=== PATIENT | female | born 1945 | race Caucasian/White ===

== ENCOUNTER 2017-10-14 21:04 | Observation (INO) | payer MEDICARE, SELFPAY ==
[2017-10-14 21:54] LABS: Bilirubin Negative (Negative); Blood, Urine Negative (Negative); Glucose, Urine (Dipstick) Negative (Negative); Ketone, Urine Negative (Negative); Nitrite Negative (Negative); Protein, Urine (Dipstick) Negative (Neg-Trace); Urobilinogen 0.2 mg/dL (0.2-1.0)
[2017-10-14 22:53] LABS: #Basophils 0.1 thou/uL (0.0-0.2); #Eosinphils 0.2 thou/uL (0.0-0.7); #Lymphocytes 0.8 thou/uL (1.20-3.40); #Monocytes 0.7 thou/uL (0.11-0.59); #Neutrophils 5.5 thou/uL (1.40-6.50); %Basophils 1.1 % (0.0-1.0); %Eosinophils 3.4 % (0.0-10.0); %Monocytes 9.5 % (0.0-10.0); Hematocrit 47.4 % (36.0-47.0); Mean Platelet Volume 7.7 fL (7.4-10.4); Red Blood Cell (RBC) Count 5.32 mill/uL (4.20-5.40); White Blood Cell (WBC) Count 7.3 thou/uL (4.8-10.8)
[2017-10-14 23:08] LABS: ALT (SGPT) 25 U/L (8-55); AST (SGOT) 26 U/L (5-34); Alkaline Phosphatase 122 U/L (40-150); Anion Gap 14 mmol/L (10-20); BUN (Urea Nitrogen) 10 mg/dL (9.8-20.1); Bilirubin, Total 0.7 mg/dL (0.2-1.2); Calc. Creatinine Clearance 0 mL/min (70-130); Carbon Dioxide 26 mmol/L (23-31); Chloride 101 mmol/L (98-107); Estimated GFR-MDRD 61; Globulin 3.5 g/dL (2.4-3.5); Protein, Total 7.6 g/dL (6.0-8.3)
--- NOTE | 2017-10-14 23:09 | CT ---
CT HEAD NONCONTRAST 10/14/17 HISTORY: Altered mental status. Lethargy. FINDINGS: No comparison. There is no evidence of acute intracranial hemorrhage or infarct. Chronic ischemic sm all vessel disease is apparent throughout the periventricular white matter of each cerebral hemisphe re. There is no mass effect or shift of midline structures. The visualized paranasal sinuses remain well aerated. IMPRESSION: No acute intracranial abnormalities are demonstrated on noncontrast CT head. POS: [facility]
--- NOTE | 2017-10-14 23:10 | RAD ---
CHEST ONE VIEW 10/14/17 HISTORY: Altered mental status. FINDINGS: No comparison. The cardiac silhouette and pulmonary vasculature are unremarkable. Mediastinum is midline. There is no confluent air space consolidation or evidence of pneumothorax. youth nutritional monitor leads overlie the chest. IMPRESSION: No active cardiopulmonary abnormalities are demonstrated. POS: [facility]
[2017-10-14 23:13] LABS: Troponin I 0.019 ng/mL (< 0.028)
[2017-10-14] MEDS ORDERED: Nitroglycerin 2% Ointment 1 INCH/1 GM Packet ONE (23:34)
--- NOTE | 2017-10-15 00:07 | PDOC.EVN ---
Event Note - Event Note Event Note: [id number] h&p dictated 1. R/O Stroke 2. HTN 3. H/O Alzheimers plan: see orders
[2017-10-15] MEDS ORDERED: Ondansetron ODT 4 MG TAB SL PRN (01:35)
[2017-10-15] MEDS ORDERED: Ondansetron HCl/PF 4 MG/2 ML Vial IVP PRN (01:35)
[2017-10-15] MEDS ORDERED: hydrALAZINE 20 MG/ML VIAL SLOW IVP PRN (01:53)
[2017-10-15] MEDS: Sodium Chloride 0.9% 1,000 ML IV SCH ×2 (02:21→16:24)
--- NOTE | 2017-10-15 08:15 | MRI ---
PRELIMINARY REPORT/[facility]/EMERGENCY AFTER HOURS PROCEDURE: EXAM: MR Head Without Intravenous Contrast EXAM DATE/TIME: 10/15/2017 12:43 AM CLINICAL HISTORY: 72 years old, female; Condition or disease; Other: Confusion, lethargic x 3-4 days; Patient HX: F72 p resents to ed C/O AMS. Her states that the patient has been lethargic over the last few days and sleeping more than normal for the last couple days. He reports that she has had decreased appetit e in that time period. He notes that she has "not been very responsive today. " her family states onesimo t there has been an element of confusion in her mental status and facial tremors. They also report sh e has had difficulty walking. The patient states that she believes there is a problem or she "would n ot be here. " she denies any pain. The family notes that in the past, the patient has responded in a similar way to stressful life TECHNIQUE: Magnetic resonance images of the head/brain without intravenous contrast in multiple planes. COMPARISON: No relevant prior studies available. FINDINGS: Brain: Bilateral extensive supratentorial symmetric confluent chronic white matter changes nonspecifi c. Multiple foci susceptibility artifact attributed to remote microhemorrhages. No mass effect. No mi dline shift. No acute infarction. Right cerebellar abnormality may be old lacunar infarction or a fitz ous angioma. The latter usually is of no clinical significance. Ventricles: No hydrocephalus. Basal cisterns preserved. Bones/joints: unremarkable for age Sinuses: Right maxillary sinus mucoperiosteal thickening. Mastoid air cells: unremarkable Orbits: not formally imaged IMPRESSION: - Bilateral extensive supratentorial symmetric confluent chronic white matter changes nonspecific. Thank you for allowing us to participate in the care of your patient. Dictated and Authenticated by: Diego Wolfe MD 10/15/2017 1:44 AM Central Time ([place] & [place]) FINAL REPORT BRAIN MRI WITHOUT CONTRAST: DATE: 10/15/17. COMPARISON: None. HISTORY: Lethargy, decreased responsiveness, confusion, altered mental status. TECHNIQUE: Multiplanar, multisequence MR imaging of the brain obtained without contrast. FINDINGS: The diffusion weighted imaging demonstrates no evidence for an acute infarction. The gradient echo imaging demonstrates innumerable punctate foci of blooming artifact involving the s upratentorial and infratentorial brain parenchyma, evidence of numerous prior micro hemorrhages, like ly on the basis of hypertension and/or marked small-vessel disease. There is moderate diffuse cerebr al volume loss with associated prominent Virchow-Jonathan spaces throughout bilateral cerebral hemispher es. Linear areas of increased T2 signal within the right cerebellar hemisphere is evidence of prior infarction and there is extensive periventricular deep and subcortical white matter T2 and FLAIR hype rintensity, also evidence of marked small-vessel disease. The regional bone marrow signal intensity is grossly unremarkable. There is mucosal thickening involving alveolar recess of the right maxillary sinus. Arterial flow vo ids at axial level of skull base appear grossly unremarkable. IMPRESSION: Cerebral volume loss with evidence of severe small-vessel disease and multifocal remote micro hemorrh age. No evidence of acute infarction. POS: [facility]
--- NOTE | 2017-10-15 08:20 | ULT ---
BILATERAL CAROTID DUPLEX ULTRASOUND: HISTORY: Altered mental status, lethargy. TECHNIQUE: Pandey scale ultrasound with color flow and spectral Doppler imaging of the extracranial carotid artery systems is performed bilaterally. FINDINGS: There is plaque formation on either side. The peak systolic velocity in the right ICA measures 40 cm/s with an end-diastolic velocity of 10 cm/ s and a systolic ratio of 0.61. The peak systolic velocity in the left ICA measures 50 cm/s with an end-diastolic velocity of 14 cm/s and a systolic ratio of 0.77. Flow in both vertebral arteries remains antegrade. IMPRESSION: No evidence of hemodynamically significant stenosis. POS: [facility]
[2017-10-15] MEDS: Heparin 5,000 UNITS/ML VIAL SC SCH ×2 (08:46→20:15)
[2017-10-15] MEDS: Aspirin 325 mg Enteric Coated Tablet PO SCH (08:46)
[2017-10-15 08:57] VITALS: BMI 30.8
--- NOTE | 2017-10-15 10:21 | HP ---
DATE OF ADMISSION: 10/15/2017 CHIEF COMPLAINT: Altered mental status. HISTORY OF PRESENT ILLNESS: The patient is a 72-year-old female with past medical history of Alzheimer's dementia, hypertension, stroke, who came to the ER because of the confusion. History obtained from the patient's family members. According to them, the patient was visiting from out of town and currently living in the step-son's house. The patient was found to be confused all of sudden associated with some questionable unsteady gait. The patient then had an episode of urinary incontinence at home, so the patient was taken to her room and changed her clothes. While the patient was doing this, the patient started having unsteady gait and not able to follow some commands. The patient appears to have some possible tremors also, but resolved later on. Denies any chest pain. Denies any palpitations. The patient does not remember anything at this time. Denies any nausea, denies any vomiting, denies any diarrhea. PAST MEDICAL HISTORY: As per HPI. PAST SURGICAL HISTORY: Hysterectomy. SOCIAL HISTORY: Denies smoking, denies alcohol, denies any drugs. FAMILY HISTORY: Reviewed. HOME MEDICATIONS: Reviewed. REVIEW OF SYSTEMS: Constitutional: Denies any fever, denies any chills. Eyes : Denies any vision problems. Ears: Denies any hearing loss. Neck: Denies any neck pain. Cardiovascular System: Denies any chest pain. Respiratory System: Denies any cough, denies sputum production. Gastrointestinal System: Denies nausea, denies vomiting. Cranial Nerve System: Denies syncope. Positive for confusion. Positive for unsteady gait. Integumentary: Denies any rash. Musculoskeletal: Denies any joint deformities. All other review of systems are reviewed and are negative. PHYSICAL EXAMINATION: CONSTITUTIONAL/VITAL SIGNS: At the time of H and P performed, blood pressure is 160/80, heart rate 85, pulse oximetry 97%. GENERAL: The patient appears comfortable. HEENT: Pupils are equal, round, and reactive. Anterior nares patent. Nose is normal. Ears are normal. Teeth intact. Tongue is moist. NECK: Supple. No JVD. CARDIOVASCULAR SYSTEM: S1 and S2 present. Regular rate and rhythm. No murmurs , no rubs, no gallops. RESPIRATORY SYSTEM: No wheezing, no rhonchi. Breath sounds bilaterally. GASTROINTESTINAL: Abdomen is soft, nontender, no guarding, no organomegaly, no masses felt. MUSCULOSKELETAL: No edema. CRANIAL NERVES SYSTEM: Awake, oriented to person, positive. Strength intact. Sensory intact. Able to perform [id number], some confusion. PSYCHIATRIC: Mood appropriate at this time. INTEGUMENTARY: No rashes seem. LABORATORY DATA: At the time of H and P performed; UA, specific gravity of 1.022. White count 7.3, hemoglobin 15.9, platelet count is 223. ASSESSMENT AND PLAN: The patient is a 72-year-old female: 1. Rule out cerebellar stroke. Plan to do MRI brain tonight. Plan to monitor the patient closely. Plan to check carotid ultrasound. We will follow the patient closely. We will consult Neurology to evaluate the patient. 2. History of hypertension. Monitor blood pressure. Continue home blood pressure medications. 3. History of Alzheimer's. Continue home meds 4. History of stroke. Continue aspirin. Case was discussed in detail with the patient and patient's family also at the bedside. VIKAS
[2017-10-15] MEDS ORDERED: Sodium Chloride 0.9% 10 ML ONE (15:49)
[2017-10-15] MEDS: Acetaminophen 325 MG TAB PO PRN ×2 (16:19→20:15)
[2017-10-15] MEDS ORDERED: Atorvastatin Calcium 40 MG TAB PO SCH (21:00)
--- NOTE | 2017-10-15 21:46 | CON ---
DATE OF CONSULTATION: 10/15/2017 REFERRING PROVIDER: Dr. Zachary Nicole. REASON FOR CONSULTATION: Ischemic stroke. HISTORY OF PRESENT ILLNESS: Ms. Coronado is a pleasant 72-year-old female who is being consulted for evaluation of ischemic stroke. History is obtained from who was present at bedside. reports that patient over the past 3 days has been acting very lethargic and confused. She has not been eating well. She has not been able to get out of her bed. She had been going to sleep while eating at the dinner table. As the symptoms continued to progress, he decided to bring her to the [facility] for further evaluation. On further discussion, he reports that her behavior had been changing over the past 3-4 weeks, but it was more drastic in the past 3-4 days. He also mentions that she has been having memory issues over the past 3-4 years, which has gradually been declining. She has been having difficulty with remembering names, remembering conversations. She has very poor short term recall. She has stopped cooking. She forgets the recipes and how to cook her meals. She has also stopped driving by herself. She does drive when is present at times, but primarily she does not drive. She misplaces objects in a location where they do not belong and has difficulty finding them. She denies any hallucinations or delusional behavior. She denied confusion. PAST MEDICAL HISTORY: Significant for hypertension, history of stroke and Alzheimer dementia. PAST SURGICAL HISTORY: Significant for hysterectomy. SOCIAL HISTORY: She does not smoke cigarettes, drink alcohol or use illicit drugs. She is and lives with her . FAMILY HISTORY: Noncontributory. CURRENT MEDICATIONS: Please review MAR. ALLERGIES: No known drug allergies. REVIEW OF SYSTEMS: As mentioned in the HPI, otherwise negative. PHYSICAL EXAMINATION: VITAL SIGNS: Blood pressure of 157/93, pulse of 101, temperature of 99.6, respirations of 20 and O2 sats of 92% on room air. GENERAL: A well-developed, well-nourished female in no apparent distress. RESPIRATORY: Clear to auscultation bilaterally. CARDIOVASCULAR: Regular rate and rhythm. NEUROLOGIC: Mental status: The patient is awake, alert and oriented x1. She is not able to state the name of the current president. She is not able to perform serial 7s. She is not able to perform delayed recall. She had difficulty with abstract thinking. Speech and language: Fluent speech. Cranial nerves: Pupils are 3 mm and reactive. Visual pearl are full to threat. Extraocular muscles are intact. No nystagmus is noted. Face is symmetric. Tongue and uvula are midline. Motor exam showed normal tone and bulk with a 5/5 strength in both upper and lower extremities. Sensory: Sensation appears intact. Deep tendon reflexes: 2+ reflexes in both upper and lower extremities. Babinski: Plantar responses flexion bilaterally. Coordination intact to jmohir-[id number] tapping bilaterally. LABORATORY DATA: Reviewed, which included CBC, CMP, lipid profile and urinalysis, which is significant for potassium of 3.3, otherwise unremarkable. IMAGING STUDIES: MRI brain without contrast was reviewed, which showed mild to moderate cerebral volume loss along with multiple microhemorrhages throughout the brain. IMPRESSION: 1. Alzheimer dementia. 2. Amyloid angiopathy. 3. Hypertension. PLAN: Ms. Coronado is a pleasant 72-year-old female who presented with the changes in mentation. After discussion with the patient's ; it is likely that patient has advanced Alzheimer dementia that has not been treated in the past. Her MRI also shows multiple microhemorrhages that would suggest amyloid angiopathy, which tends to be at high risk leading to Alzheimer dementia. At this time, I would recommend starting her on Aricept 5 mg daily. She is okay to be followed up as an outpatient. No further neurological workup needed at this time. Thank you for the consultation. VIKAS
[2017-10-16 05:28] LABS: #Eosinphils 0.4 thou/uL (0.0-0.7); #Lymphocytes 0.9 thou/uL (1.20-3.40); #Monocytes 0.7 thou/uL (0.11-0.59); #Neutrophils 4.2 thou/uL (1.40-6.50); %Basophils 0.7 % (0.0-1.0); %Eosinophils 6.1 % (0.0-10.0); %Lymphocytes 14.8 % (21.0-51.0); %Monocytes 11.3 % (0.0-10.0); Hematocrit 46.4 % (36.0-47.0); Mean Platelet Volume 8.1 fL (7.4-10.4); Red Blood Cell (RBC) Count 5.24 mill/uL (4.20-5.40); White Blood Cell (WBC) Count 6.3 thou/uL (4.8-10.8)
[2017-10-16] MEDS: Sodium Chloride 0.9% 1,000 ML IV SCH (05:40)
[2017-10-16 05:50] LABS: Anion Gap 13 mmol/L (10-20); BUN (Urea Nitrogen) 9 mg/dL (9.8-20.1); Calc. Creatinine Clearance 86 mL/min (70-130); Calcium 8.5 mg/dL (7.8-10.44); Carbon Dioxide 24 mmol/L (23-31); Chloride 104 mmol/L (98-107); Estimated GFR-MDRD 79
[2017-10-16] MEDS: Heparin 5,000 UNITS/ML VIAL SC SCH (08:30)
[2017-10-16] MEDS: Aspirin 325 mg Enteric Coated Tablet PO SCH (08:31)
[2017-10-16] MEDS ORDERED: FLU VACC TS2017-18 (>65YR) 0.5 ML SYRINGE IM ONE (09:00)
[2017-10-16 11:22] VITALS: TEMP 97.8
--- NOTE | 2017-10-16 12:16 | DIS ---
DATE OF ADMISISON: 10/14/2017 DATE OF DISCHARGE: 10/16/2017 ADMISSION DIAGNOSIS: Altered mental status. PRIMARY DISCHARGE DIAGNOSES: 1. Advancing Alzheimer's. 2. Hypertension. 3. Amyloid angiopathy. HOSPITAL COURSE: The patient was admitted, because her family noticed that she had a change from her baseline demented state. The patient had unsteady gait and was not able to follow some commands. P jose miguel was admitted, a brain CT was performed which showed no acute intracranial abnormalities. An M RI was performed, which showed bilateral extensive supratentorial white matter changes as well as tanner e microhemorrhages. Dr. Marinelli of Neurology felt that these changes were consistent with amyloid angio jeremiah and advancing dementia. He recommended the patient be started on Aricept and be followed as an outpatient. CONSULTANTS: Dr. Marinelli, Neurology. PROCEDURES: Brain MRI as well as cardiac echocardiogram. Results of the echo showed ejection fracti on of 55%-60% with borderline concentric left ventricular hypertrophy, mild mitral regurgitation and trace tricuspid regurgitation. DISCHARGE DISPOSITION: To home. DISCHARGE MEDICATIONS: Please see medication rec list. We will add Aricept 5 mg p.o. at bedtime. DISCHARGE DIET: Heart healthy. PHYSICAL EXAMINATION: GENERAL: She is in no acute distress, ambulating and following commands. HEAD: Normocephalic, atraumatic. EYES: PERRL. Extraocular muscles intact. Throat clear. CARDIAC: Regular rate and rhythm. LUNGS: Clear to auscultation. ABDOMEN: Nontender, nondistended. EXTREMITIES: No clubbing, cyanosis or edema. DISCHARGE INSTRUCTIONS: The patient is to follow up with her PCP within 2 weeks and she is also to f ollow up with Neurology in 3-4 weeks as needed.
[2017-10-16 14:10] VITALS: BP 145/78
[2017-10-16] MEDS ORDERED: Donepezil HCl 5 MG TAB PO SCH (21:00)
--- NOTE | 2017-11-22 15:52 | EKG ---
Test Reason : AMS Blood Pressure : / mmHG Vent. Rate : 095 BPM Atrial Rate : 095 BPM P-R Int : 160 ms QRS Dur : 080 ms QT Int : 364 ms P-R-T Axes : -27 -01 064 degrees QTc Int : 457 ms Normal sinus rhythm Moderate voltage criteria for LVH, may be normal variant Cannot rule out Septal infarct , age undetermined Abnormal ECG Confirmed by JENNY NAIDU, SAMANTHA ([id number]), news copy editor BARRON ART ([id number]) on 11/22/2017 3:52:06 PM Referred By: JENNY Confirmed By:SAMANTHA ALVARADO MD
== END 2017-10-16 13:03 | disposition home or self-care (01) ==
LOC: ERS 21:04 → 2SE 23:50
PROVIDERS: ADMIT Internal Medicine; ATTEND Internal Medicine
DX: G30.9 Alzheimer's disease, unspecified (principal); F02.80 Dementia in other diseases classified elsewhere, unspecified severity, without behavioral disturbance, psychotic disturbance, mood disturbance, and anxiety; I68.0 Cerebral amyloid angiopathy; I10 Essential (primary) hypertension; Z90.710 Acquired absence of both cervix and uterus; Z86.73 Personal history of transient ischemic attack (TIA), and cerebral infarction without residual deficits; Z87.891 Personal history of nicotine dependence
CPT/HCPCS: 36415; 51701; 70450; 70551; 71010; 80048; 80053; 80061; 81003; 82140; 82553; 84484; 85025; 87040; 93005; 93306; 93880; 96360; 96361; A4216; A4353; G0378; G8978-GP-CL; G8979-GP-CJ; G8987-GO-CI; G8988-GO-CI; G8989-GO-CI; G9168-GN-CM; G9169-GN-CM; J1644

== ENCOUNTER 2021-08-07 10:35 | Outpatient (CLI) | payer MEDICARE, MEDICAID | END 2021-08-07 10:36 | disposition home or self-care (01) | LOC: CT 10:35 | PROVIDERS: ATTEND Internal Medicine | DX: R41.82 Altered mental status, unspecified (principal) | CPT/HCPCS: 70450 ==

== ENCOUNTER 2023-11-01 05:12 | Inpatient (IN) | payer MEDICARE, OTHER, MEDICAID ==
[2023-11-01 18:01] LABS: Bacteria/HPF 3+ HPF (None Seen); Bilirubin Negative (Negative); Blood, Urine 3+ (Negative); CAUTI Indications for Culture Alt mental st,lethar; Clarity Extra Turbid (Clear); Glucose, Urine (Dipstick) Normal (Negative); Ketone, Urine Negative (Negative); Leukocyte 500 Leu/uL (Negative); Nitrite Negative (Negative); Protein, Urine (Dipstick) 200 mg/dL (Neg-Trace); RBC/HPF Greater than 50 HPF (0-3); Specific Gravity, Urine 1.014 (1.002-1.036); Urobilinogen Normal mg/dL (Less than 2); WBC/HPF Greater than 50 HPF (0-3); pH, Urine 7.5 (5.0-9.0)
[2023-11-01 18:02] LABS: #Basophils 0.1 thou/uL (0.0-0.2); #Eosinphils 0.6 thou/uL (0.0-0.7); #Monocytes 0.8 thou/uL (0.11-0.59); #Neutrophils 6.9 thou/uL (1.40-6.50); %Basophils 0.7 % (0.0-1.0); %Eosinophils 5.8 % (0.0-10.0); %Lymphocytes 12.7 % (21.0-51.0); %Monocytes 8.1 % (0.0-10.0); %Neutrophils 71.8 % (42.0-75.0); Hematocrit 38.3 % (36.0-47.0); Hemoglobin 10.3 g/dL (12.0-16.0); Mean Corpuscular HGB CONC 26.9 g/dL (32.0-36.0); Mean Corpuscular Hemoglobin 26.3 pg (27.0-31.0); Mean Platelet Volume 12.7 fL (7.4-10.4); Platelet Count 198 10x3/uL (130-400); RBC Distribution Width 17.7 % (11.5-14.5); Red Blood Cell (RBC) Count 3.91 mill/uL (4.20-5.40); White Blood Cell (WBC) Count 9.6 10x3/uL (4.8-10.8)
[2023-11-01 18:03] LABS: Urine Culture Reflex Yes Yes
[2023-11-01] MEDS ORDERED: cefTRIAXone (ROCEPHIN) 1 GM VIAL ONE (18:12)
[2023-11-01] MEDS ORDERED: Sodium Chloride 0.9% 100 ML ONE (18:12)
[2023-11-01] MEDS ORDERED: Vancomycin 1 GM/200 ML (FROZEN) BAG ONE (18:12)
[2023-11-01 18:30] LABS: ALT (SGPT) 11 U/L (8-55); AST (SGOT) 11 U/L (5-34); Albumin 3.3 g/dL (3.4-4.8); Alkaline Phosphatase 77 U/L (40-110); Anion Gap 24 mmol/L (10-20); Bilirubin, Total 0.3 mg/dL (0.2-1.2); Calc. Creatinine Clearance 0 mL/min (70-130); Calcium 7.9 mg/dL (7.8-10.44); Carbon Dioxide 23 mmol/L (23-31); Chloride 130 mmol/L (98-107); Estimated GFR 8; Globulin 2.9 g/dL (2.4-3.5); Glucose 145 mg/dL (83-110); Potassium 4.9 mmol/L (3.5-5.1); Protein, Total 6.2 g/dL (5.8-8.1); Sodium 172 mmol/L (136-145)
[2023-11-01 18:32] LABS: CellaVision Operator ID LAB.KB; Hypochromia SLIGHT = 6-15 cells HPF (0-5); Ovalocytes SLIGHT = 2-5 cells HPF (0-1); Platelet Adequacy Comment Platelets Normal; Polychromasia SLIGHT = 2-3 cells HPF (0-2)
[2023-11-01 18:37] LABS: BUN (Urea Nitrogen) 135 mg/dL (9.8-20.1)
[2023-11-01 18:47] LABS: Troponin I 0.021 ng/mL (< 0.028)
[2023-11-01] MEDS ORDERED: Ondansetron ODT 4 MG TAB PO PRN (21:42)
[2023-11-01] MEDS ORDERED: Acetaminophen 650 MG Suppository PR PRN (21:42)
[2023-11-01] MEDS ORDERED: Ondansetron PF 4 MG/2 ML Vial IVP PRN (21:42)
[2023-11-01] MEDS ORDERED: Acetaminophen 325 MG TAB PO PRN (21:42)
[2023-11-01] MEDS: Sodium Chloride 0.9% 1,000 ML IV SCH (22:08)
[2023-11-01] MEDS ORDERED: Piperacillin/Tazobactam 3.375 GM in Sodium Chloride 0.9% 100 ML IVPB SCH (23:00)
[2023-11-01] MEDS ORDERED: Piperacillin/Tazobactam 4.5 GM in Sodium Chloride 0.9% 100 ML IVPB SCH (23:59)
[2023-11-02] MEDS: Sodium Chloride 0.9% 1,000 ML IV SCH (02:30)
[2023-11-02] MEDS: Piperacillin/Tazobactam 3.375 GM in Sodium Chloride 0.9% 100 ML IVPB SCH ×2 (04:03→15:15)
[2023-11-02 05:56] LABS: #Basophils 0.1 thou/uL (0.0-0.2); #Eosinphils 0.7 thou/uL (0.0-0.7); #Neutrophils 5.7 thou/uL (1.40-6.50); %Basophils 0.8 % (0.0-1.0); %Lymphocytes 23.4 % (21.0-51.0); %Monocytes 10.5 % (0.0-10.0); %Neutrophils 57.2 % (42.0-75.0); Hematocrit 33.4 % (36.0-47.0); Hemoglobin 9.1 g/dL (12.0-16.0); Mean Corpuscular HGB CONC 27.2 g/dL (32.0-36.0); Mean Corpuscular Hemoglobin 26.1 pg (27.0-31.0); Mean Corpuscular Volume 95.7 fl (78.0-98.0); Platelet Count 169 10x3/uL (130-400); RBC Distribution Width 17.3 % (11.5-14.5); Red Blood Cell (RBC) Count 3.49 mill/uL (4.20-5.40); White Blood Cell (WBC) Count 9.9 10x3/uL (4.8-10.8)
[2023-11-02 06:35] LABS: Anion Gap 16 mmol/L (10-20); BUN (Urea Nitrogen) 118 mg/dL (9.8-20.1); Calc. Creatinine Clearance 10 mL/min (70-130); Calcium 7.4 mg/dL (7.8-10.44); Carbon Dioxide 22 mmol/L (23-31); Chloride 134 mmol/L (98-107); Estimated GFR 11; Glucose 104 mg/dL (83-110); Sodium 168 mmol/L (136-145)
[2023-11-02] MEDS ORDERED: FLU VACC QS2023(65UP)/MF59C/PF 60 MCG/0.5 ML SYRINGE IM ONE (09:00)
[2023-11-02] MEDS: Famotidine 20 MG TAB PO SCH (09:57)
[2023-11-02] MEDS: Heparin 5,000 UNITS/ML VIAL SC SCH ×3 (10:00→21:16)
[2023-11-02] MEDS: Famotidine/PF 20 mg/2ml Vial SLOW IVP SCH (10:00)
[2023-11-02] MEDS: Sodium Chloride 0.45% 1,000 ML IV SCH ×3 (10:00→22:35)
[2023-11-02 15:05] LABS: Anion Gap 15 mmol/L (10-20); BUN (Urea Nitrogen) 106 mg/dL (9.8-20.1); Calc. Creatinine Clearance 12 mL/min (70-130); Calcium 7.5 mg/dL (7.8-10.44); Carbon Dioxide 22 mmol/L (23-31); Chloride 134 mmol/L (98-107); Estimated GFR 12; Glucose 93 mg/dL (83-110); Potassium 4.3 mmol/L (3.5-5.1); Sodium 167 mmol/L (136-145)
[2023-11-02 20:25] LABS: Anion Gap 17 mmol/L (10-20); BUN (Urea Nitrogen) 94 mg/dL (9.8-20.1); Calc. Creatinine Clearance 13 mL/min (70-130); Calcium 7.7 mg/dL (7.8-10.44); Carbon Dioxide 20 mmol/L (23-31); Chloride 132 mmol/L (98-107); Estimated GFR 14; Glucose 83 mg/dL (83-110); Potassium 4.2 mmol/L (3.5-5.1); Sodium 165 mmol/L (136-145)
[2023-11-03] MEDS: Piperacillin/Tazobactam 3.375 GM in Sodium Chloride 0.9% 100 ML IVPB SCH ×2 (04:41→16:41)
[2023-11-03] MEDS: Sodium Chloride 0.45% 1,000 ML IV SCH (05:00)
[2023-11-03] MEDS: Famotidine/PF 20 mg/2ml Vial SLOW IVP SCH (08:20)
[2023-11-03] MEDS: Heparin 5,000 UNITS/ML VIAL SC SCH ×3 (08:20→20:59)
[2023-11-03] MEDS: Famotidine 20 MG TAB PO SCH (08:20)
[2023-11-03] MEDS ORDERED: levETIRAcetam 100 mg/ml Oral Solution PO SCH (09:00)
[2023-11-03] MEDS: D5 1/4 NS 1,000 ML IV SCH ×3 (09:12→21:09)
[2023-11-03] MEDS ORDERED: Amiodarone 200 MG TAB PO SCH (09:15)
[2023-11-03 09:26] LABS: Lactic Acid 0.9 mmol/L (0.5-2.2)
[2023-11-03 09:33] LABS: Anion Gap 15 mmol/L (10-20); BUN (Urea Nitrogen) 70 mg/dL (9.8-20.1); Calc. Creatinine Clearance 15 mL/min (70-130); Calcium 7.5 mg/dL (7.8-10.44); Carbon Dioxide 21 mmol/L (23-31); Chloride 130 mmol/L (98-107); Estimated GFR 18; Glucose 79 mg/dL (83-110); Sodium 162 mmol/L (136-145)
[2023-11-03] MEDS: Divalproex Sodium 250 MG (DR) TAB PO SCH ×2 (09:35→20:59)
[2023-11-03] MEDS: hydrALAZINE 25 MG TAB PO SCH ×3 (09:36→20:59)
[2023-11-03] MEDS: Memantine 10 MG TAB PO SCH ×2 (09:36→20:59)
[2023-11-03] MEDS: Cholecalciferol 1,000 UNITS (25 MCG) TAB PO SCH (09:36)
[2023-11-03] MEDS: Citalopram 20 MG TAB PO SCH (09:36)
[2023-11-03 18:20] LABS: Anion Gap 13 mmol/L (10-20); BUN (Urea Nitrogen) 56 mg/dL (9.8-20.1); Calc. Creatinine Clearance 18 mL/min (70-130); Calcium 7.8 mg/dL (7.8-10.44); Carbon Dioxide 21 mmol/L (23-31); Chloride 126 mmol/L (98-107); Estimated GFR 21; Glucose 171 mg/dL (83-110); Potassium 3.7 mmol/L (3.5-5.1)
[2023-11-03 18:33] LABS: Sodium 156 mmol/L (136-145)
[2023-11-03] MEDS: Donepezil HCl 5 MG TAB PO SCH (20:59)
[2023-11-03] MEDS: levETIRAcetam 500 mg/5 ml Oral Solution PO SCH (20:59)
[2023-11-04] MEDS: Piperacillin/Tazobactam 3.375 GM in Sodium Chloride 0.9% 100 ML IVPB SCH ×2 (04:35→16:02)
[2023-11-04] MEDS: D5 1/4 NS 1,000 ML IV SCH ×3 (04:36→17:57)
[2023-11-04 05:37] LABS: Anion Gap 14 mmol/L (10-20); BUN (Urea Nitrogen) 38 mg/dL (9.8-20.1); Calc. Creatinine Clearance 22 mL/min (70-130); Calcium 7.6 mg/dL (7.8-10.44); Carbon Dioxide 18 mmol/L (23-31); Chloride 123 mmol/L (98-107); Estimated GFR 27; Glucose 154 mg/dL (83-110); Potassium 3.5 mmol/L (3.5-5.1)
[2023-11-04 05:40] LABS: Sodium 151 mmol/L (136-145)
[2023-11-04 06:28] LABS: Hematocrit 31.2 % (36.0-47.0); Hemoglobin 9.3 g/dL (12.0-16.0); Mean Corpuscular HGB CONC 29.8 g/dL (32.0-36.0); Mean Corpuscular Hemoglobin 26.3 pg (27.0-31.0); Mean Corpuscular Volume 88.4 fl (78.0-98.0); Mean Platelet Volume 12.3 fL (7.4-10.4); Platelet Count 147 10x3/uL (130-400); Red Blood Cell (RBC) Count 3.53 mill/uL (4.20-5.40); White Blood Cell (WBC) Count 7.9 10x3/uL (4.8-10.8)
[2023-11-04] MEDS: Heparin 5,000 UNITS/ML VIAL SC SCH ×3 (09:19→21:00)
[2023-11-04] MEDS: levETIRAcetam 500 mg/5 ml Oral Solution PO SCH ×2 (09:19→20:59)
[2023-11-04] MEDS: Divalproex Sodium 250 MG (DR) TAB PO SCH ×2 (09:19→20:59)
[2023-11-04] MEDS: Famotidine 20 MG TAB PO SCH (09:19)
[2023-11-04] MEDS: Memantine 10 MG TAB PO SCH ×2 (09:19→20:59)
[2023-11-04] MEDS: hydrALAZINE 25 MG TAB PO SCH ×3 (09:19→21:00)
[2023-11-04] MEDS: Citalopram 20 MG TAB PO SCH (09:19)
[2023-11-04] MEDS: Cholecalciferol 1,000 UNITS (25 MCG) TAB PO SCH (09:19)
[2023-11-04] MEDS: Famotidine/PF 20 mg/2ml Vial SLOW IVP SCH (09:20)
[2023-11-04] MEDS: Amiodarone 200 MG TAB PO SCH (09:20)
[2023-11-04] MEDS: Donepezil HCl 5 MG TAB PO SCH (21:00)
[2023-11-05] MEDS: D5 1/4 NS 1,000 ML IV SCH ×2 (03:08→08:54)
[2023-11-05] MEDS: Piperacillin/Tazobactam 3.375 GM in Sodium Chloride 0.9% 100 ML IVPB SCH ×3 (04:39→20:52)
[2023-11-05 04:48] LABS: Anion Gap 12 mmol/L (10-20); BUN (Urea Nitrogen) 22 mg/dL (9.8-20.1); Calc. Creatinine Clearance 32 mL/min (70-130); Calcium 7.3 mg/dL (7.8-10.44); Carbon Dioxide 20 mmol/L (23-31); Chloride 113 mmol/L (98-107); Estimated GFR 37; Glucose 121 mg/dL (83-110); Potassium 2.8 mmol/L (3.5-5.1); Sodium 142 mmol/L (136-145)
[2023-11-05] MEDS ORDERED: Potassium Chloride 20 MEQ in Premix 1 BAG IVPB SCH ×2 (08:30→09:00)
[2023-11-05] MEDS: Memantine 10 MG TAB PO SCH ×2 (09:00→20:52)
[2023-11-05] MEDS: Heparin 5,000 UNITS/ML VIAL SC SCH ×3 (09:00→20:52)
[2023-11-05] MEDS: Citalopram 20 MG TAB PO SCH (09:00)
[2023-11-05] MEDS: Amiodarone 200 MG TAB PO SCH (09:00)
[2023-11-05] MEDS: Cholecalciferol 1,000 UNITS (25 MCG) TAB PO SCH (09:00)
[2023-11-05] MEDS: Divalproex Sodium 250 MG (DR) TAB PO SCH ×2 (09:00→20:52)
[2023-11-05] MEDS: hydrALAZINE 25 MG TAB PO SCH ×3 (09:01→20:52)
[2023-11-05] MEDS: levETIRAcetam 500 mg/5 ml Oral Solution PO SCH ×2 (09:01→20:53)
[2023-11-05] MEDS: Famotidine 20 MG TAB PO SCH (09:03)
[2023-11-05] MEDS: Famotidine/PF 20 mg/2ml Vial SLOW IVP SCH (09:03)
[2023-11-05] MEDS ORDERED: hydrALAZINE 20 MG/ML VIAL SLOW IVP PRN (14:16)
[2023-11-05] MEDS: Donepezil HCl 5 MG TAB PO SCH (20:52)
[2023-11-06] MEDS: Piperacillin/Tazobactam 3.375 GM in Sodium Chloride 0.9% 100 ML IVPB SCH ×2 (04:43→11:43)
[2023-11-06 08:00] LABS: #Basophils 0.1 thou/uL (0.0-0.2); #Eosinphils 1.1 thou/uL (0.0-0.7); #Monocytes 0.8 thou/uL (0.11-0.59); %Basophils 0.8 % (0.0-1.0); %Eosinophils 13.5 % (0.0-10.0); %Lymphocytes 24.1 % (21.0-51.0); %Monocytes 9.8 % (0.0-10.0); %Neutrophils 50.3 % (42.0-75.0); Hematocrit 27.7 % (36.0-47.0); Hemoglobin 8.7 g/dL (12.0-16.0); Mean Corpuscular HGB CONC 31.4 g/dL (32.0-36.0); Mean Corpuscular Hemoglobin 26.5 pg (27.0-31.0); Mean Corpuscular Volume 84.5 fl (78.0-98.0); RBC Distribution Width 15.4 % (11.5-14.5); Red Blood Cell (RBC) Count 3.28 mill/uL (4.20-5.40); White Blood Cell (WBC) Count 7.9 10x3/uL (4.8-10.8)
[2023-11-06 08:40] LABS: Platelet Count 117 10x3/uL (130-400)
[2023-11-06] MEDS ORDERED: Famotidine 20 MG TAB PO SCH (09:00)
[2023-11-06] MEDS ORDERED: Famotidine/PF 20 mg/2ml Vial SLOW IVP SCH (09:00)
[2023-11-06] MEDS: Citalopram 20 MG TAB PO SCH (09:04)
[2023-11-06] MEDS: Amiodarone 200 MG TAB PO SCH (09:04)
[2023-11-06] MEDS: hydrALAZINE 25 MG TAB PO SCH ×2 (09:04→15:21)
[2023-11-06] MEDS: Memantine 10 MG TAB PO SCH (09:05)
[2023-11-06] MEDS: levETIRAcetam 500 mg/5 ml Oral Solution PO SCH (09:05)
[2023-11-06] MEDS: Cholecalciferol 1,000 UNITS (25 MCG) TAB PO SCH (09:05)
[2023-11-06] MEDS: Divalproex Sodium 250 MG (DR) TAB PO SCH (09:05)
[2023-11-06] MEDS: Heparin 5,000 UNITS/ML VIAL SC SCH ×2 (09:06→15:25)
[2023-11-06 10:18] LABS: Anion Gap 11 mmol/L (10-20); BUN (Urea Nitrogen) 15 mg/dL (9.8-20.1); Calc. Creatinine Clearance 31 mL/min (70-130); Calcium 7.7 mg/dL (7.8-10.44); Carbon Dioxide 20 mmol/L (23-31); Chloride 115 mmol/L (98-107); Estimated GFR 35; Glucose 95 mg/dL (83-110); Sodium 142 mmol/L (136-145)
[2023-11-06 10:25] VITALS: BMI 25.2
[2023-11-06 12:32] VITALS: TEMP 97.4
[2023-11-06 12:50] VITALS: BP 176/79
== END 2023-11-06 16:27 | disposition hospice, inpatient (51) | DRG 56 ==
LOC: ERS 05:12 → 2NO 19:40
PROVIDERS: ADMIT Student in an Organized Health Care Education/Training Program; ATTEND Internal Medicine
DX: G30.9 Alzheimer's disease, unspecified (principal); G93.41 Metabolic encephalopathy; E87.0 Hyperosmolality and hypernatremia; N17.9 Acute kidney failure, unspecified; N39.0 Urinary tract infection, site not specified; E87.20 Acidosis, unspecified; E86.0 Dehydration; E11.22 Type 2 diabetes mellitus with diabetic chronic kidney disease; M10.9 Gout, unspecified; F02.80 Dementia in other diseases classified elsewhere, unspecified severity, without behavioral disturbance, psychotic disturbance, mood disturbance, and anxiety; F17.210 Nicotine dependence, cigarettes, uncomplicated; G40.909 Epilepsy, unspecified, not intractable, without status epilepticus; E87.6 Hypokalemia; Z79.84 Long term (current) use of oral hypoglycemic drugs; Z79.82 Long term (current) use of aspirin; Z90.710 Acquired absence of both cervix and uterus; Z79.899 Other long term (current) drug therapy; S00.03XA Contusion of scalp, initial encounter; I12.9 Hypertensive chronic kidney disease with stage 1 through stage 4 chronic kidney disease, or unspecified chronic kidney disease; N18.9 Chronic kidney disease, unspecified; W19.XXXA Unspecified fall, initial encounter
CPT/HCPCS: 36415; 36416; 51702; 70450; 71045; 72125; 80048; 80053; 81001; 83605; 83880; 84484; 85025; 85027; 87040; 87077; 87086; 87186; 93005; 96361; 96365; 96375; J0696; J1644; J2543; J3370-JW; J3480; J3490; J7042; J7050; S0028